=== PATIENT | male | born 1985 | race Caucasian/White ===

== ENCOUNTER 2021-05-07 19:13 | Emergency (ER) | payer SELFPAY ==
--- NOTE | 2021-05-07 20:04 | ER ---
Nurse's Notes [facility] Name: Guzman Waterman Age: 36 yrs Sex: Male : 1985 Arrival Date: 05/07/2021 Time: 19:16 Bed 11 Private MD: Diagnosis: Low back pain Presentation: 05/07 19:23 Chief complaint: Patient states: Lower back pain starting yesterday. Denies any pain kg with urination. Coronavirus screen: Vaccine status: Patient reports being unvaccinated. At this time, the client does not indicate any symptoms associated with coronavirus-19. Ebola Screen: Patient negative for fever greater than or equal to 101.5 degrees Fahrenheit, and additional compatible Ebola Virus Disease symptoms Patient denies exposure to infectious person. Patient denies travel to an Ebola-affected area in the 21 days before illness onset. Initial Sepsis Screen: Does the patient meet any 2 criteria? No. Patient's initial sepsis screen is negative. Does the patient have a suspected source of infection? No. Patient's initial sepsis screen is negative. Risk Assessment: Do you want to hurt yourself or someone else? Patient reports no desire to harm self or others. Onset of symptoms was May 06, 2021. 19:23 Method Of Arrival: Ambulatory kg 19:23 Acuity: CLAY 4 kg Triage Assessment: 19:24 General: Appears in no apparent distress. Behavior is calm, cooperative, appropriate kg for age, quiet. Pain: Complains of pain in left low back and right low back Pain currently is 3 out of 10 on a pain scale. at worst was 8 out of 10 on a pain scale. level that patient reports is acceptable is 3 out of 10 on a pain scale. Musculoskeletal: Reports pain in left low back and right low back. Historical: - Allergies: 19:24 No Known Allergies; kg - Home Meds: 19:24 None [Active]; kg - PMHx: 19:24 None; kg - PSHx: 19:24 None; kg - Immunization history:: Adult Immunizations not up to date, Client reports having NOT received the Covid vaccine. - Social history:: Smoking status: Patient reports use of chewing tobacco. Screenin:26 Abuse screen: Denies threats or abuse. Denies injuries from another. Nutritional kg screening: No deficits noted. Tuberculosis screening: No symptoms or risk factors identified. Fall Risk None identified. Assessment: 19:44 Neuro: Level of Consciousness is awake, alert, obeys commands, Oriented to person, bc5 place, time, situation, Appropriate for age. Musculoskeletal: Reports pain in right low back and left low back. 19:45 Reassessment: Pt c/o lower back pain onset yesterday "I was moving trays of pishivama kbh bc5 to the stretch table and maybe I slate picker top many..... it hurts to bend over and to stand up straight" denies numbness, tingling, or loss of sensation. A\\T\\O x 3, RR is even and unlabored, speaking in clear and complete sentences at this time. Vital Signs: 19:23 BP 111 / 82; Pulse 60; Resp 18; Temp 97.7(TE); Pulse Ox 98% on R/A; Weight 90.72 kg kg (R); Height 6 ft. 1 in. (185.42 cm) (R); Pain 3/10; 19:23 Body Mass Index 26.39 (90.72 kg, 185.42 cm) kg ED Course: 19:16 Patient arrived in ED. do 19:24 Triage completed. kg 19:26 Patient has correct armband on for positive identification. kg 19:26 No provider procedures requiring assistance completed. kg 19:41 Lul Coles PA is PHCP. jr8 19:41 Roe Alcaraz MD is Attending Physician. jr8 19:44 Karime Frankel, BEN is Primary Nurse. bc5 20:48 Arm band placed on left wrist. bc5 20:48 Patient did not have IV access during this emergency room visit. bc5 Administered Medications: No medications were administered Outcome: 20:04 Discharge ordered by . jr8 20:48 Discharged to home ambulatory. bc5 20:48 Condition: good 20:48 Discharge instructions given to patient, Instructed on discharge instructions, follow up and referral plans. medication usage, Prescriptions given X 1. 20:49 Patient left the ED. bc5 Signatures: Lul Coles PA PA jr8 Anya Cloud Kristen, RN RN kg Karime Frankel, BEN RN bc5
--- NOTE | 2021-05-07 20:04 | EDPHYS ---
Physician Documentation [facility] Name: Guzman Waterman Age: 36 yrs Sex: Male : 1985 Arrival Date: 05/07/2021 Time: 19:16 Bed 11 Private MD: ED Physician Roe Alcaraz HPI: 05/07 20:18 This 36 yrs old Male presents to ER via Ambulatory with complaints of Back jr8 Pain. 20:18 Severity of symptoms: At their worst the symptoms were mild, in the emergency jr8 department the symptoms are unchanged. The patient has not experienced similar symptoms in the past. The patient has not recently seen a physician. This is a 36-year-old male patient that presented to the emergency room for evaluation of low back pain. Stated that he was moving a lot of dough at work today and felt a strain. Since then has had pain. Took 500 of Tylenol and have been trying heating pad but has had a little relief. Denies any other symptoms at this time.. Historical: - Allergies: 19:24 No Known Allergies; kg - Home Meds: 19:24 None [Active]; kg - PMHx: 19:24 None; kg - PSHx: 19:24 None; kg - Immunization history:: Adult Immunizations not up to date, Client reports having NOT received the Covid vaccine. - Social history:: Smoking status: Patient reports use of chewing tobacco. ROS: 20:18 Eyes: Negative for injury, pain, redness, and discharge, ENT: Negative for injury, jr8 pain, and discharge, Neck: Negative for injury, pain, and swelling, Cardiovascular: Negative for chest pain, palpitations, and edema, Respiratory: Negative for shortness of breath, cough, wheezing, and pleuritic chest pain, Abdomen/GI: Negative for abdominal pain, nausea, vomiting, diarrhea, and constipation, MS/Extremity: Negative for injury and deformity, Skin: Negative for injury, rash, and discoloration, Neuro: Negative for headache, weakness, numbness, tingling, and seizure. 20:18 Back: Positive for pain at rest, pain with movement, Negative for radiated pain. Exam: 20:18 Constitutional: This is a well developed, well nourished patient who is awake, alert, jr8 and in no acute distress. Cardiovascular: Regular rate and rhythm with a normal S1 and S2. No gallops, murmurs, or rubs. Normal PMI, no JVD. No pulse deficits. Respiratory: Lungs have equal breath sounds bilaterally, clear to auscultation and percussion. No rales, rhonchi or wheezes noted. No increased work of breathing, no retractions or nasal flaring. Abdomen/GI: Soft, non-tender, with normal bowel sounds. No distension or tympany. No guarding or rebound. No evidence of tenderness throughout. Skin: Warm, dry with normal turgor. Normal color with no rashes, no lesions, and no evidence of cellulitis. MS/ Extremity: Pulses equal, no cyanosis. Neurovascular intact. Full, normal range of motion. Neuro: Awake and alert, GCS 15, oriented to person, place, time, and situation. Cranial nerves II-XII grossly intact. Motor strength 5/5 in all extremities. Sensory grossly intact. 20:18 Back: pain, that is mild, of the left low back and right low back, ROM is painful, with flexion, normal spinal alignment noted, CVA tenderness, is absent, muscle spasm, is not present. Vital Signs: 19:23 BP 111 / 82; Pulse 60; Resp 18; Temp 97.7(TE); Pulse Ox 98% on R/A; Weight 90.72 kg kg (R); Height 6 ft. 1 in. (185.42 cm) (R); Pain 3/10; 19:23 Body Mass Index 26.39 (90.72 kg, 185.42 cm) kg MDM: 19:41 Patient medically screened. jr8 19:58 Data reviewed: vital signs, nurses notes, and as a result, I will discharge patient. jr8 Data interpreted: Pulse oximetry: on room air is 98 %. Interpretation: normal. Counseling: I had a detailed discussion with the patient and/or guardian regarding: the historical points, exam findings, and any diagnostic results supporting the discharge/admit diagnosis, the need for outpatient follow up, a family practitioner, to return to the emergency department if symptoms worsen or persist or if there are any questions or concerns that arise at home. Administered Medications: No medications were administered Disposition: 05/08 00:23 Co-signature as Attending Physician, Roe Alcaraz MD. pkl Disposition Summary: 09/29/21 20:04 Discharge Ordered Location: Home jr8 Problem: new jr8 Symptoms: have improved jr8 Condition: Stable jr8 Diagnosis - Low back pain jr8 Followup: jr8 - With: Private Physician - When: 2 - 3 days - Reason: Recheck today's complaints, Continuance of care, Re-evaluation by your physician Discharge Instructions: - Discharge Summary Sheet jr8 - Acute Back Pain, Adult jr8 - Musculoskeletal Pain jr8 - Heat Therapy jr8 Forms: - Medication Reconciliation Form jr8 - Thank You Letter jr8 - Antibiotic Education jr8 - Prescription Opioid Use jr8 - Work release form bc5 Prescriptions: - Skelaxin 800 mg Oral Tablet - take 1 tablet by ORAL route every 8 hours As needed; 30 tablet; Refills: 0, jr8 Product Selection Permitted Signatures: Roe Alcaraz MD MD pkl Lul Coles PA PA jr8 Maddie Evangelista RN RN kg
[2021-05-07 20:54] VITALS: BP 111/82; TEMP 97.7; O2SAT 98
== END 2021-05-07 20:49 | disposition home or self-care (01) ==
LOC: ER 19:13
DX: M54.5 Low back pain (principal); F17.220 Nicotine dependence, chewing tobacco, uncomplicated
CPT/HCPCS: 99282